=== PATIENT | male | born 1955 | race Caucasian/White ===

== ENCOUNTER 2021-05-24 00:33 | Day surgery (SDC) | payer OTHER, SELFPAY ==
[2021-05-11 14:22] VITALS: BMI 26.6
[2021-05-24 10:14] VITALS: BP 124/70; PULSE 59; RESP 16; TEMP 36.6; O2SAT 98; BMI 26.8
--- NOTE | 2021-05-24 10:21 | WPDANESEPPF ---
Anes - Initial Pre Proc Eval Procedure: Operation Date: 05/24/21 11:30 Proposed Procedures p Screening Colonoscopy - Bebo Phillips MD Date/Time: 05/24/21 10:21 Surgeon: Bebo Phillips MD Pre Op Diagnosis: neoplasm screening Patient Data Age: 65 Gender: M Height: 1.7 m Weight: 77.7 kg Last Vital Signs Temp 36.6 C 05/24/21 10:14 Pulse 59 L 05/24/21 10:14 Resp 16 05/24/21 10:14 BP 124/70 05/24/21 10:14 Pulse Ox 98 05/24/21 10:14 Allergies Allergy/AdvReac Type Severity Reaction Status Date / Time No Known Allergies Allergy Verified 05/24/21 10:13 Home Medications Medication Instructions Recorded Confirmed Type atorvastatin 10 mg PO DAILY 05/11/21 05/24/21 History empagliflozin [Jardiance] 25 mg PO DAILY 05/11/21 05/24/21 History metformin 500 mg PO TID 05/11/21 05/24/21 History Patient hx anesthesia problems: none Family hx anesthesia problems: none Results Review: All pre-operative results and documents have been reviewed as part of the pre-operative evaluation. [facility] Past Medical History Medical History (Updated 05/24/21 @ 10:36 by Bebo Phillips MD) Diabetes type 2, controlled GERD (gastroesophageal reflux disease) Hyperlipidemia Social History Social History Smoking status: Never smoker Drinks per week: 1 Living arrangements: alone Anes - Eval Final PreProcedure Day of Procedure 05/24/21 10:21 Patient weight: overweight Heart: regular rate and rhythm Lungs: clear to auscultation and normal air movement Airway: Mallampati scale class II Neurological: alert and oriented Last oral intake: >/= 8 hours ASA classification: III Emergent: no Anesthetic plan: proceed Anesthesia type and monitoring: general GIVS and standard monitoring Results Review: All pre-operative results and documents have been reviewed as part of the pre-operative evaluation. Informed Consent: The patient's anesthetic plan and its attendant risks and benefits were discussed with the patient/family/POA. Questions were solicited and answers provided to the satisfaction of the patient/family/POA.
[2021-05-24] MEDS: LACTATED RINGERS 1,000 ML 150 ML IV CONT (10:30)
[2021-05-24 10:34] LABS: Glucose Point of Care 133 mg/dl (65-105)
--- NOTE | 2021-05-24 10:35 | P.CONGI_ITS ---
Assessment and Plan Assessment and plan (1) Encounter for screening colonoscopy: Code(s): Z12.11 - Encounter for screening for malignant neoplasm of colon Status: Acute Assessment and Plan: Patient presents today for screening colonoscopy. Appears to be at average risk for colon polyps. Further recommendations will be given after endoscopy. GI Consult Note Consult date/time: 05/24/21 10:35 HPI: Chevy Sierra is a 65 year old male Presents for screening colonoscopy. Patient reports that his current weight appetite bowel movements are normal. Patient denies abdominal pain. He has had no bleeding. Family history is noncontributory. Patient states he may have had a colon polyp many years ago. Most recent colonoscopy was unremarkable. He presents today for neoplasia screening. [facility] Past Medical History Medical History (Updated 05/24/21 @ 10:36 by Bebo Phillips MD) Diabetes type 2, controlled GERD (gastroesophageal reflux disease) Hyperlipidemia Social History Social History Smoking status: Never smoker Drinks per week: 1 Living arrangements: alone Meds Home Medications and Allergies Home Medications Medication Instructions Recorded Confirmed Type atorvastatin 10 mg PO DAILY 05/11/21 05/24/21 History empagliflozin [Jardiance] 25 mg PO DAILY 05/11/21 05/24/21 History metformin 500 mg PO TID 05/11/21 05/24/21 History Allergies Allergy/AdvReac Type Severity Reaction Status Date / Time No Known Allergies Allergy Verified 05/24/21 10:13 Vital Signs Vital Signs - 24 hr 05/24/21 10:14 Temperature 97.9 F Pulse Rate 59 L Respiratory Rate 16 Blood Pressure 124/70 Pulse Oximetry 98 Exam Narrative: Physical exam reveals patient be alert. Vital signs stable. HEENT exam is unremarkable. Patient is anicteric. Lungs are clear to auscultation and percussion. Heart is without murmur or extra sounds. Abdominal exam bowel sounds are present soft nontender with no organomegaly. Digital external rectal exam is normal.
[2021-05-24 11:32] VITALS: BP 96/65; PULSE 68; O2SAT 96
[2021-05-24 11:42] VITALS: BP 108/69; PULSE 65; O2SAT 97
[2021-05-24 11:52] VITALS: BP 123/74; PULSE 63; O2SAT 98
== END 2021-05-24 11:54 | disposition home or self-care (01) ==
PROVIDERS: PCP Internal Medicine; Visit Provider Internal Medicine Gastroenterology
PROC: 0DJD8ZZ Inspection of Lower Intestinal Tract, Via Natural or Artificial Opening Endoscopic (ICD-10-PCS; CPT 45378; principal; 2021-05-24 11:30)
DX: Z12.11 Encounter for screening for malignant neoplasm of colon (principal); K64.8 Other hemorrhoids; E11.9 Type 2 diabetes mellitus without complications; E78.5 Hyperlipidemia, unspecified; K21.9 Gastro-esophageal reflux disease without esophagitis; Z79.84 Long term (current) use of oral hypoglycemic drugs
CPT/HCPCS: 45378; 82948; J2704; J7120

== ENCOUNTER 2023-06-24 10:53 | Outpatient (CLI) | payer MEDICARE, OTHER, SELFPAY | END 2023-06-24 10:54 | disposition home or self-care (01) | LOC: ANHBWCAUD 10:53 | PROVIDERS: PCP Internal Medicine | DX: H90.3 Sensorineural hearing loss, bilateral (principal); H93.11 Tinnitus, right ear | CPT/HCPCS: 92557; 92567 ==